=== PATIENT | female | born 1995 ===

== ENCOUNTER → 2024-05-27 | Outpatient (CLI) | payer OTHER ==
[~2024-05-27] MED LIST: CODACEE120 PO; DESL5 PO; MOMENI
== END ==
LOC: LAB 08:03 → LAB SHORT 08:03
DX: L29.0 Pruritus ani (principal)
CPT/HCPCS: 87172

== ENCOUNTER → 2024-12-21 | Outpatient (CLI) | payer OTHER | LOC: LAB 09:01 → LAB SHORT 09:01 | DX: R82.90 Unspecified abnormal findings in urine (principal) | CPT/HCPCS: 87086 ==

== ENCOUNTER → 2025-02-22 | Outpatient (CLI) | payer OTHER ==
[2025-02-22 11:51] LABS: Source, Urine Clean Catch
[2025-02-22 13:28] LABS: Bilirubin, Urine Neg (Neg); Color, Urine Yellow (P-Yellow); Glucose Qualitative, Urine Neg (Neg); Ketones, Urine Neg (Neg); Leukocyte Esterase, Urine 1+ (Neg); Protein, Urine 1+ (Neg); Specific Gravity, Urine 1.025 (1.003-1.022); Urobilinogen, Urine NORM (Normal)
[2025-02-22 14:21] LABS: Red Blood Cells, Urine 0-2 /hpf (0-2)
== END ==
LOC: LAB SHORT 11:49 → LAB 11:49
PROVIDERS: Advanced Practice Midwife
DX: R82.90 Unspecified abnormal findings in urine (principal)
CPT/HCPCS: 81001; 87086

== ENCOUNTER → 2025-03-15 | Outpatient (CLI) | payer OTHER ==
[2025-03-16 09:28] LABS: Chlamydia Trachomatis Urine NOT DETECTED (NOT DETECT); Neisseria Gonorrhoea Urine NOT DETECTED (NOT DETECT)
== END ==
LOC: LAB 16:16 → LAB SHORT 16:16
PROVIDERS: Obstetrics & Gynecology
DX: Z11.3 Encounter for screening for infections with a predominantly sexual mode of transmission (principal)
CPT/HCPCS: 87491; 87591